=== PATIENT | female | born 1985 | race Caucasian/White ===

== ENCOUNTER 2018-01-11 06:32 | Inpatient (IN) ==
[~2018-01-11 06:32] MED LIST: *HR* Nalbuphine 10 MG/ML AMPUL IVP PRN; Famotidine 20 MG/2 ML VIAL IVP PRN; Metoclopramide 10 MG/2 ML VIAL IVP PRN; Naloxone 0.4 MG/ML INJ IVP PRN; Ondansetron 4 MG/2 ML VIAL IVP PRN
--- NOTE | 2018-01-11 06:38 | OB/GYN History & Physical ---
Date of Encounter: 01/11/18 Time of Encounter: 06:34 Assessment and Plan (1) 40 weeks gestation of Current visit: No Status: Acute 32 yo female presents in active labor. Will admit to L&D, perform amniotomy and expect . History of Present Illness Chief complaint: Labor HPI: Ms. Jiang is a 32 year old female female presents with membranes in tact in active labor with cervix 8-9 cm dilated and bulging membranes. Labor started early yesterday and has progressed in intensity. has been uncomplicated. Her GBBS is negative. Past Med Surg Social Fam HX - Past Medical History Source: patient, old records reviewed Medical history: no medical history Psychiatric history: no psych history - Past Surgical History Surgical History: no surgical history - Social History Smoking Status: Never smoker Alcohol use: none Drug use: none - Family History Mother Hx Family Endocrine Disorder: Yes (THYROID) Obstetrical History - Pregnancies : 2 Para: 1 Medications and Allergies Pnv95/Iron Fum/Folic Acid [ Caplet] 1 each PO DAILY 06/03/16 [History] Breast Pump [BREAST PUMP] 1 each .ROUTE AD #1 each 06/05/16 [Rx] Docusate [Colace] 100 mg PO BID #60 capsule 06/05/16 [Rx] Ibuprofen [Motrin] 600 mg PO Q6HR PRN #60 tablet 06/05/16 [Rx] 3 Allergy/AdvReac Type Severity Reaction Status Date / Time No Known Allergies Allergy Verified 10/09/15 18:52 Exam - Constitutional Constitutional: well developed, well nourished, other (Obviously in labor) - HEENT HEENT: EOMI, PERRL - Neck Neck exam: full ROM - Lungs Respiratory exam: CTAB - Cardiovascular Cardiovascular exam: RRR - Abdomen Abdomen: Present: non tender - Extremities Extremities exam: full ROM Deep Tendon Reflex Grade: 2+ Normal - Cervix Dilation: 9 Effacement: 100 Station: -1 Results All other labs normal.
[2018-01-11] MEDS ORDERED: Ringers Solution, Lactated 1,000 ML IVC SCH (06:45)
[2018-01-11] MEDS ORDERED: Ringers Solution, Lactated 1,000 ML ONE (06:46)
[2018-01-11] MEDS ORDERED: Oxytocin 20 units/ LR 1000 mL 20 UNIT/1,000 ML BAG IVC ONE (06:47)
[2018-01-11 06:53] LABS: Basophils % 0.3 %; Eosinophils % 0.3 %; Hematocrit 36.2 % (35.3-44.9); Hemoglobin 12.7 g/dL (11.5-15.4); Immature Granulocytes % 0.8 % (0-4); Lymphocytes # 1.8 K/mcL (0.6-4.6); Lymphocytes % 17.6 %; Mean Corpuscular HGB Conc 35.1 g/dL (31.6-35.5); Mean Corpuscular Hemoglobin 31.1 pg (28.0-33.3); Mean Corpuscular Volume 88.5 fL (83.0-100.0); Mean Platelet Volume 10.6 fL (9.4-12.4); Monocytes # 0.6 K/mcL (0.0-1.3); Monocytes % 5.7 %; Neutrophils # 7.7 K/mcL (1.6-8.9); Platelet Count 178 K/mcL (140-400); Red Blood Count 4.09 M/mcL (3.82-4.97); Red Cell Distribution Width 12.9 % (11.5-14.5); Segmented Neutrophils % 75.3 %
[2018-01-11 07:32] LABS: Amphetamine Screen,Urine Negative ng/mL (Cutoff=1000); Barbiturate Screen,Urine Negative ng/mL (Cutoff=200); Benzodiazepines Screen,Urine Negative ng/mL (Cutoff=200); Cannabinoid Screen,Urine Negative ng/mL (Cutoff = 50); Cocaine Screen,Urine Negative ng/mL (Cutoff= 300); Opiate Screen,Urine Negative ng/mL (Cutoff=300); Phencyclidine Screen,Urine Negative ng/mL (Cutoff=25)
[2018-01-11] MEDS ORDERED: Ibuprofen 600 MG TABLET PO ONE (08:02)
[2018-01-11] MEDS ORDERED: Rho Immune Globulin 1,500 UNIT SYRINGE IM PRN (08:11)
[2018-01-11] MEDS ORDERED: Measles/Mumps/Rubella Vacc 0.5 ML VIAL SQ PRN (08:11)
[2018-01-11] MEDS ORDERED: Acetaminophen 325 MG TABLET PO PRN (08:11)
[2018-01-11] MEDS ORDERED: Oxytocin 20 units/ LR 1000 mL 20 UNIT/1,000 ML BAG IVC SCH (08:15)
--- NOTE | 2018-01-11 08:16 | OB/GYN Procedure Note ---
Delivery - Delivery Date: 01/11/18 Provider: Compa Flores Intrapartum events: none Delivery induction: none Delivery monitor: external FHT, external uterine Anesthesia: local Quantitated Blood Loss: 90 - Infant (s) A Infant Delivery Date: 01/11/18 Presentation: vertex Position: ILO Gender: Male Viability: Viable Specimens collected: cord blood Placenta: spontaneous Cord: 3 umbilical vessels - Repair Episiotomy: none Laceration Description: Perineal - 1st Degree - Complications Delivery complications: none - Disposition Mom disposition: stable in LDR [place] disposition: stable in LDR - Comments Comments: Pt s/p of liveborn male infant without incident over 1st degree laceration which was repaired under local anesthesia with 10 cc of 1% Llidocaine with Epinephrine. Spontaneous delivery of intact placenta which was normal with 3 VC. EBL 90 cc no complications, mother and infant recovered in LDR.
[2018-01-11] MEDS ORDERED: Prenatal Vit/FA 1 EACH TABLET PO SCH (09:00)
[2018-01-11] MEDS: Ibuprofen 600 MG TABLET PO PRN ×2 (17:38→23:57)
[2018-01-12 04:34] LABS: Basophils % 0.2 %; Eosinophils % 0.5 %; Hemoglobin 11.2 g/dL (11.5-15.4); Immature Granulocytes % 0.7 % (0-4); Lymphocytes # 2.5 K/mcL (0.6-4.6); Lymphocytes % 30.2 %; Mean Corpuscular HGB Conc 33.9 g/dL (31.6-35.5); Mean Corpuscular Hemoglobin 30.4 pg (28.0-33.3); Mean Corpuscular Volume 89.4 fL (83.0-100.0); Mean Platelet Volume 10.5 fL (9.4-12.4); Monocytes # 0.5 K/mcL (0.0-1.3); Monocytes % 6.3 %; Neutrophils # 5.1 K/mcL (1.6-8.9); Platelet Count 142 K/mcL (140-400); Red Blood Count 3.69 M/mcL (3.82-4.97); Red Cell Distribution Width 13.2 % (11.5-14.5); Segmented Neutrophils % 62.1 %
[2018-01-12] MEDS: Ibuprofen 600 MG TABLET PO PRN (08:11)
--- NOTE | 2018-01-12 09:06 | Discharge Summary ---
Date of Encounter: 01/12/18 Time of Encounter: 09:01 - Discharge Diagnosis (1) Mother currently breast-feeding Priority: Secondary Status: Acute (2) (normal spontaneous vaginal delivery) Priority: Primary Status: Acute Comments: Pt meeting milestones. She is requesting discharge today. - Discharge Medications Prescriptions: Ibuprofen [Motrin] 600 mg PO Q6HR PRN #30 tablet PRN Reason: Cramping Docusate [Colace] 100 mg PO BID #30 capsule Home Medications: Pnv95/Iron Fum/Folic Acid [ Caplet] 1 each PO DAILY 06/03/16 [History] Breast Pump [BREAST PUMP] 1 each .ROUTE AD #1 each 06/05/16 [Rx] Docusate [Colace] 100 mg PO BID #30 capsule 01/12/18 [Rx] Ibuprofen [Motrin] 600 mg PO Q6HR PRN #30 tablet 01/12/18 [Rx] Lidocaine 1% [Xylocaine] 20 ml INFILT ONCE PRN vial 01/12/18 [Rx] Allergies/Adverse Reactions: 3 Allergy/AdvReac Type Severity Reaction Status Date / Time No Known Allergies Allergy Verified 10/09/15 18:52 Data Procedures and tests throughout hospitalization: Laboratory Tests 01/11/18 01/11/18 01/12/18 06:30 06:33 04:05 WBC 10.2 8.3 RBC 4.09 3.69 L Hgb 12.7 11.2 L D Hct 36.2 33.0 L MCV 88.5 89.4 MCH 31.1 30.4 MCHC 35.1 33.9 RDW 12.9 13.2 Plt Count 178 142 MPV 10.6 10.5 Immature Gran % 0.8 0.7 Seg Neutrophils % 75.3 62.1 Lymphocytes % 17.6 30.2 Monocytes % 5.7 6.3 Eosinophils % 0.3 0.5 Basophils % 0.3 0.2 Neutrophils # 7.7 5.1 Lymphocytes # 1.8 2.5 Monocytes # 0.6 0.5 Eosinophils # 0.0 0.0 Basophils # 0.0 0.0 Urine Opiates Screen Negative Ur Barbiturates Screen Negative Ur Phencyclidine Scrn Negative Ur Amphetamines Screen Negative U Benzodiazepines Scrn Negative Urine Cocaine Screen Negative U Marijuana (THC) Screen Negative Labs on day of discharge: Labs from last 24 hours 01/12/18 04:05 WBC 8.3 RBC 3.69 L Hgb 11.2 L D Hct 33.0 L MCV 89.4 MCH 30.4 MCHC 33.9 RDW 13.2 Plt Count 142 MPV 10.5 Immature Gran % 0.7 Seg Neutrophils % 62.1 Lymphocytes % 30.2 Monocytes % 6.3 Eosinophils % 0.5 Basophils % 0.2 Neutrophils # 5.1 Lymphocytes # 2.5 Monocytes # 0.5 Eosinophils # 0.0 Basophils # 0.0 Date of admission: 01/11/18 06:32 Primary care physician: PCP NONE Consults: 01/11/18 08:11 Consult to Director Of Media [CONS] Routine Comment: Vaginal delivery, consult needed Discharging clinician: Latonya Mcguire Anticipated date of discharge: 01/12/18 - Patient Status Disposition: Home, Self-Care Condition: Good Functional capacity at discharge: independent ambulation Overall status at discharge: patient is progressing back to baseline - Discharge Instructions Follow Up With: NONE,PCP [Primary Care Provider] - Compa Flores MD [Partnered Physician] - - Diet and Activity Activity: increase activity as tolerated Diet: regular diet Hospital Course Reason for admission: active labor Delivery: Episiotomy: none Laceration: 1st degree Other procedures: none complications: none Discharge diagnosis: IUP at term delivered [place] baby: male Hospital course: - (s) A Delivery Date: 01/11/18 Presentation: vertex Position: LIO Gender: Male Viability: Viable Specimens collected: cord blood Placenta: spontaneous Cord: 3 umbilical vessels - Repair Episiotomy: none Laceration Description: Perineal - 1st Degree - Complications Delivery complications: none - Disposition Mom disposition: home PPD1 disposition: home with mother, Time Attestation: Total time spent providing and/or coordinating discharge services: Time Spent: Less than 30 minutes Exam - Constitutional Vitals: Temp Pulse Resp BP Pulse Ox 98 F 70 14 98/61 98 01/12/18 03:35 01/12/18 03:35 01/12/18 03:35 01/12/18 03:35 01/12/18 03:35 General appearance IM: A&O X 3 - Respiratory Respiratory exam: Present: CTAB - Cardiovascular Cardiovascular exam IM: Present: RRR - GI/Abdominal GI/Abdominal exam IM: soft, no peritoneal signs - Uterine Tone: Firm Uterus Position: 2 Fingers Below Umbilicus - Extremities Exam Extremities exam IM: Present: normal inspection - Neurological Exam Neurological exam: normal gait, oriented X3 - Psychiatric Additional comments: reports good mood
[2018-01-12 09:25] VITALS: BP 118/72
== END 2018-01-12 14:20 | disposition home or self-care (01) | DRG 775 ==
LOC: 1NENULAB → 1NENUOBS 09:46
PROVIDERS: ADMIT Advanced Practice Midwife; ATTEND Advanced Practice Midwife

== ENCOUNTER 2020-12-03 09:26 | Inpatient (IN) ==
[2020-12-03 08:43] LABS: Basophils % 0.3 %; Eosinophils % 0.1 %; Hematocrit 32.3 % (35.3-44.9); Immature Granulocytes % 0.6 % (0-4); Lymphocytes # 1.9 K/mcL (0.6-4.6); Lymphocytes % 21.9 %; Mean Corpuscular HGB Conc 34.1 g/dL (31.6-35.5); Mean Corpuscular Hemoglobin 29.6 pg (28.0-33.3); Mean Corpuscular Volume 86.8 fL (83.0-100.0); Mean Platelet Volume 11.1 fL (9.4-12.4); Monocytes # 0.5 K/mcL (0.0-1.3); Monocytes % 5.9 %; Neutrophils # 6.2 K/mcL (1.6-8.9); Platelet Count 192 K/mcL (140-400); Red Blood Count 3.72 M/mcL (3.82-4.97); Red Cell Distribution Width 12.6 % (11.5-14.5); Segmented Neutrophils % 71.2 %; White Blood Count 8.7 K/mcL (4.3-11.1)
[~2020-12-03 09:26] MED LIST changes: -*HR* Nalbuphine 10 MG/ML AMPUL IVP PRN; +Azithromycin 500 MG in 0.9 % Sodium Chloride 250 ML IVPB PRN; +EPHEDrine 50 MG/ML VIAL IVP PRN; +Epidural Premix (fent/bupiv) 110 ML EP SCH; +Lidocaine 1% 20 ML MDV INFILT PRN; +Oxytocin 20 units/ LR 1000 mL 20 UNIT/1,000 ML BAG IVC SCH; +Ringers Solution, Lactated 1,000 ML IVC SCH; +Ringers Solution, Lactated 1,000 ML ONE
[2020-12-03 12:06] LABS: Influenza A PCR Negative (Negative); Influenza B PCR Negative (Negative); Resp. Syncytial Virus PCR Negative (Negative)
[2020-12-03 12:14] LABS: SARS-CoV-2 by PCR (In House) Positive (Negative)
[2020-12-03] MEDS ORDERED: Lanolin 7 G OINT...G. TP PRN (16:38)
[2020-12-03] MEDS ORDERED: Measles/Mumps/Rubella Vacc 0.5 ML VIAL SQ PRN (16:38)
[2020-12-03] MEDS ORDERED: Benzocaine/Menthol 56 GM AEROSOL SPRAY TP PRN (16:38)
[2020-12-03] MEDS ORDERED: Acetaminophen 325 MG TABLET PO PRN (16:38)
[2020-12-03] MEDS ORDERED: Oxytocin 20 units/ LR 1000 mL 20 UNIT/1,000 ML BAG IVC SCH (16:38)
[2020-12-03] MEDS ORDERED: Sennosides 8.6 MG TABLET PO PRN (16:38)
[2020-12-03] MEDS: Ibuprofen 600 MG TABLET PO PRN (17:22)
[2020-12-04] MEDS: Ibuprofen 600 MG TABLET PO PRN ×2 (03:06→09:18)
[2020-12-04 03:23] VITALS: BP 105/76
[2020-12-04 03:38] LABS: Basophils % 0.5 %; Eosinophils % 0.3 %; Hematocrit 29.5 % (35.3-44.9); Hemoglobin 9.5 g/dL (11.5-15.4); Immature Granulocytes % 0.6 % (0-4); Lymphocytes # 2.2 K/mcL (0.6-4.6); Mean Corpuscular HGB Conc 32.2 g/dL (31.6-35.5); Mean Corpuscular Hemoglobin 28.4 pg (28.0-33.3); Mean Corpuscular Volume 88.1 fL (83.0-100.0); Mean Platelet Volume 10.9 fL (9.4-12.4); Monocytes # 0.6 K/mcL (0.0-1.3); Monocytes % 7.1 %; Neutrophils # 5.9 K/mcL (1.6-8.9); Platelet Count 165 K/mcL (140-400); Red Blood Count 3.35 M/mcL (3.82-4.97); Red Cell Distribution Width 12.8 % (11.5-14.5); Segmented Neutrophils % 66.5 %; White Blood Count 8.9 K/mcL (4.3-11.1)
[2020-12-04] MEDS ORDERED: IRON FUM PO SCH (09:00)
[2020-12-04] MEDS ORDERED: PNV95 PO SCH (09:00)
[2020-12-04] MEDS ORDERED: [UNRECOGNIZED DRUG - OTHER] PO SCH (09:00)
[2020-12-04] MEDS ORDERED: FOLIC ACID T PO SCH (09:00)
[2020-12-04] MEDS ORDERED: Prenatal Vit/FA 1 EACH TABLET PO SCH (09:00)
== END 2020-12-04 15:00 | disposition home or self-care (01) | DRG 805 ==
LOC: 1NENULAB → 1NENUOBS 16:23
PROVIDERS: ADMIT Obstetrics & Gynecology; ATTEND Obstetrics & Gynecology